=== PATIENT | male | born 1985 | race Caucasian/White ===

== ENCOUNTER 2016-07-20 19:40 | Emergency (ER) | payer OTHER ==
[~2016-07-20 19:40] MED LIST: FIORICET 50-301 EACH PO; FLUOXETINE HCL20 MG PO; SUBOXONE 8 MG-1 EAC2 SL
[2016-07-20 20:00] LABS: EOSINOPHIL (%) 0.4 % (0-5); EOSINOPHIL COUNT 0.1 K/uL (0-0.3); HEMATOCRIT 40.4 % (38.0-50.0); IMMATURE GRANULOCYTE (%) 0.2 % (0.0-0.7); IMMATURE GRANULOCYTE COUNT 0.3 K/uL; LYMPHOCYTE COUNT 0.9 K/uL (1.0-2.8); MCHC 35.1 G/DL (30.0-36.0); MCV 88.2 FL (86-99); MEAN PLAT.VOLUME 8.9 uM^3 (9.0-12.4); MONOCYTE (%) 4.9 % (3-12); MONOCYTE COUNT 0.7 K/uL (0-0.8); NEUTROPHIL (%) 87.7 % (45-76); NEUTROPHIL COUNT 12.3 K/uL (1.8-6.4); PLATELET COUNT 248 K/uL (156-360); RBC DIS.WIDTH-SD 37.8 % (39-53); RED BLOOD COUNT 4.58 M/uL (4.00-5.50)
[2016-07-20 20:10] LABS: AMYLASE 57 IU/L (1-118); CHLORIDE 101 mEq/L (99-109); POTASSIUM 4.1 mEq/L (3.7-5.4); SODIUM 140 mEq/L (136-147)
[2016-07-20 20:12] LABS: GLUCOSE 103 mg/dL (70-99)
[2016-07-20 20:13] LABS: ANION GAP 12 MEQ/L (2-14)
[2016-07-20 20:15] LABS: SERUM ETHYL ALCOHOL < 10 mg/dL
[2016-07-20 20:16] LABS: GFR ESTIMATE (CALCULATED) > 59 mL/min/
[2016-07-20 20:17] LABS: UREA NITROGEN (BUN) 14 mg/dL (9-23)
[2016-07-20 20:19] LABS: LIPASE 42 U/L (1.0-51.0)
[2016-07-20 20:58] LABS: TROP-I INTERPRETATION NEGATIVE; TROPONIN-I < 0.01 ng/mL (0.0-0.30)
[2016-07-20] MEDS ORDERED: MOTRIN800 MG PO (21:24)
== END 2016-07-20 22:05 ==
LOC: TRA 19:40
PROVIDERS: Emergency Medicine
DX: T14.8 Other injury of unspecified body region (principal); R51 Headache; R07.9 Chest pain, unspecified; R10.9 Unspecified abdominal pain; R42 Dizziness and giddiness; V49.40XA Driver injured in collision with unspecified motor vehicles in traffic accident, initial encounter; F11.90 Opioid use, unspecified, uncomplicated; R00.0 Tachycardia, unspecified; F17.200 Nicotine dependence, unspecified, uncomplicated
CPT/HCPCS: 70450; 71010; 71260; 72125; 72129; 72132; 74177; 80048; 81003; 82150; 83690; 84484; 85025; 86850; 86900; 86901; 93005; 99281; 99285; G0480